=== PATIENT | male | born 1945 | race Caucasian/White ===

== ENCOUNTER 2023-12-05 12:20 | Outpatient (CLI) | payer MEDICARE, SELFPAY ==
--- NOTE | ~2023-12-05 | PE_ITS ---
EXAMINATION: PET_PETPSMAST_PT DATE: 12/06/2023 06:56 INDICATION: Malignant neoplasm of prostate. TECHNIQUE: 5.227 mCi of Ga-68 gozetotide was administered intravenously. Low dose computed tomography (CT) images were acquired from the base of the brain to the proximal thighs for attenuation correcti on and anatomic localization. Automated exposure control was employed. Dose-length product (DLP) was 1065 mGy-cm. Positron emission tomography (PET) images were acquired in the same distribution. COMPARISON: None FINDINGS: Head/neck: There are no pathologically enlarged lymph nodes. Chest: There is mild atelectasis bilaterally. Calcified pulmonary nodules and calcified hilar and med iastinal lymph nodes are consistent with old granulomatous disease. No pleural effusion. The heart si ze is normal. There are coronary artery calcifications. No pericardial effusion. Abdomen/pelvis/proximal thighs: There is an 18 mm cyst in the liver. There are gallstones in the gall bladder, which is normal in size. Calcifications in the spleen are consistent with old granulomatous disease. The pancreas and adrenal glands are normal. There are cysts in the kidneys measuring up to 2 .4 cm on the right. There is a 1 mm stone in right kidney. There are 3 stones in left kidney measurin g up to 5 mm. Aortic atherosclerosis is noted. The prostate is mildly enlarged. There is increased ac tivity in the prostate, right worse than left with maximum SUV of 111. There is diverticulosis of the colon without evidence of diverticulitis. The appendix is normal. There are no pathologically enlarg ed lymph nodes. There is no free intraperitoneal fluid. There is a left inguinal hernia containing fa t. There is no osseous malignancy. IMPRESSION: 1. Mildly enlarged prostate with increased activity, consistent with primary malignancy. No evidence of metastatic disease. Reviewed, dictated and finalized at location A. IMPRESSION: 1. Mildly enlarged prostate with increased activity, consistent with primary ma lignancy. No evidence of metastatic disease.
== END 2023-12-05 12:21 | disposition home or self-care (01) ==
PROVIDERS: PCP Urology; Visit Provider Urology
DX: C61 Malignant neoplasm of prostate (principal)
CPT/HCPCS: 78815; A9596